=== PATIENT | female | born 1965 | race Caucasian/White ===

== ENCOUNTER 2021-12-30 22:36 | Emergency (ER) | payer OTHER, SELFPAY ==
[2021-12-30 23:09] VITALS: BP 117/78; PULSE 69; RESP 17; TEMP 36.6; O2SAT 99; BMI 25.2
--- NOTE | 2021-12-30 23:19 | DI.RAD.S_ITS ---
PROCEDURE: XR FEMUR RT MIN 2V INDICATIONS: puncture wound to left lateral thigh r/o foreign body TECHNIQUE: 2 views of the femur were acquired. COMPARISON: None. FINDINGS: Bones: No fractures or dislocations. No suspicious bony lesions. Soft tissues: No suspicious soft tissue calcifications or masses. No foreign body. IMPRESSION: No radiopaque foreign body identified. Dictated by: Kike Novoa M.D. on 12/31/2021 at 0:40 Approved by: Kike Novoa M.D. on 12/31/2021 at 0:40
[2021-12-31 03:32] VITALS: BP 120/69; PULSE 76; RESP 19; TEMP 36.5; O2SAT 96
--- NOTE | 2021-12-31 03:36 | DI.RAD.S_ITS ---
PROCEDURE: XR ANKLE RT MIN 3V INDICATIONS: Pain/swelling TECHNIQUE: 3 views of the ankle were acquired. COMPARISON: None. FINDINGS: Bones: No fractures or dislocations. Ankle mortise is normally aligned. No suspicious bony lesions. Soft tissues: No tibiotalar joint effusion. Achilles tendon appears normal. Lateral soft tissue swelling. IMPRESSION: Lateral soft tissue swelling. No evidence acute bony abnormality of the right ankle. If clinical suspicion and/or symptoms persist, further assessment with repeat plain films, or advanced imaging (e.g., CT, MRI, or bone scan) may be helpful for further assessment. Comment: Final report is concordant with preliminary interpretation provided by [facility]. Dictated by: Teja Woodward M.D. on 12/31/2021 at 5:44 Approved by: Teja Woodward M.D. on 12/31/2021 at 5:50
[2021-12-31] MEDS: TET,DIPH,PERTUSS(ACELL),VAC/PF 0.5 ML SYRINGE IM (03:45)
[2021-12-31] MEDS: cephALEXin 250 MG CAPSULE 500 MG PO (03:45)
--- NOTE | 2021-12-31 03:45 | ED.WOUNDLAC ---
HPI - Wound/Laceration General Chief Complaint: Wound/Laceration Stated Complaint: Laceration left thigh Time Seen by Provider: 12/31/21 03:30 Source: patient Mode of arrival: Ambulatory History of Present Illness HPI narrative: Patient here with . At 10:00 p.m. shayne patient was near the [place] and walking. She tripped and fell on top of her bag, it had a glass bottle that broke. She cut the left lateral thigh. Also twisted her right ankle. No other complaints. A friend had removed a piece of glass that was 2 or 3 in long from left leg wound. Related Data Previous Rx's Medication Instructions Recorded cephalexin 500 mg capsule 500 mg PO TID #15 caps 12/31/21 Allergies Allergy/AdvReac Type Severity Reaction Status Date / Time No Known Drug Allergies Allergy Verified 12/30/21 23:15 Review of Systems Review of Systems Narrative: GENERAL: Denies chills, fatigue, malaise, fever, sweats. HEENT: Denies sinus pain, ear pain, sore throat RESPIRATORY: Denies dyspnea, cough CARDIOVASCULAR: Denies chest pain, palpitations GASTROINTESTINAL: Denies nausea, vomiting, abdominal pain : Denies dysuria, frequency, hematuria MUSCULOSKELETAL: Positive for muscle or bony pain SKIN: Denies rash, skin lesions, positive for skin injury NEUROLOGIC: Denies weakness, numbness ROS Unobtainable: All systems reviewed & are unremarkable except as noted in HPI and below Patient History Social History Smoking Status: Never smoker Smoking Status: Never smoker alcohol intake frequency: 0-2 drinks per day Substance Use Type: does not use Exam Narrative Exam Narrative: GENERAL: in no distress, not toxic not dyspneic, patient in skirt. Shoes and socks off. HEAD: Normocephalic. EYES: Pupils equal round No scleral icterus. EXTREMITIES: No gross deformities. Examination right lower extremity. Patient shoes and socks off. There is edema ecchymosis of the right lateral malleolus. Able to flex and extend fully. Foot warm soft and pink strong pedal pulse with light touch intact to foot and toes. Examination of left lower extremity. There is a 2 cm semicircular laceration at the mid lateral left thigh. Base visualized bloodless field. Probed with a Q-tip. No foreign body palpated or visualized. NEURO: AOx4. SKIN: Warm and dry PSYCH: Not anxious, is cooperative Initial Vital Signs Initial Vital Signs: Vital Signs Temperature 97.9 F 12/30/21 23:09 Pulse Rate 69 12/30/21 23:09 Respiratory Rate 17 12/30/21 23:09 Blood Pressure 117/78 12/30/21 23:09 Pulse Oximetry 99 12/30/21 23:09 Oxygen Delivery Method 12/30/21 23:09 Procedures Laceration Repair Laceration 1: Time of procedure: 05:40 Site: lower extremity Side (If applicable): left Size (cm): 2 Depth: simple, single layer Local Anesthetic: lidocaine 1% and with epi Amount of anesthesia used (mL): 4 Pre-repair: wound explored, irrigated extensively and deep structures intact Skin layer closed with: other (Prolene) Skin layer suture size: 4-0 Number of sutures: 4 Technique: simple, interrupted Course Course Course Narrative: No new issues during course of stay Orders Ordered: ED Orders 12/30/21 23:19 XR femur RT min 2V Stat 12/31/21 03:36 XR ankle RT min 3V Stat 12/31/21 04:18 US extremity nonvasc lower lt Stat Discontinued Medications Bacitracin (Bacitracin Oint 0.9 Gm Pckt) 1 applic TOP NOW ONE Stop: 12/31/21 05:33 Last Admin: 12/31/21 05:39 Dose: 1 applic Documented By: LALITA Cephalexin HCl (Cephalexin 250 Mg Capsule) 500 mg PO NOW ONE Stop: 12/31/21 03:37 Last Admin: 12/31/21 03:45 Dose: 500 mg Documented By: COOPER Diphtheria/Tetanus/Acell Pertussis (Tet,Diph,Pertuss(Acell),Vac/Pf 0.5 Ml Syringe) 0.5 ml IM .ONCE ONE Stop: 12/31/21 03:37 Last Admin: 12/31/21 03:45 Dose: 0.5 ml Documented By: COOPER Lidocaine/Epinephrine (Lidocaine 1% W/Epi) 1 ml SUBCUT NOW ONE Stop: 12/31/21 03:41 Last Admin: 12/31/21 03:49 Dose: 1 ml Documented By: COOPER Vital Signs Vital signs: Vital Signs - 8 hr 12/30/21 23:09 12/31/21 03:32 12/31/21 05:46 Temperature 97.9 F 97.7 F Pulse Rate 69 76 59 L Respiratory Rate 17 19 Blood Pressure 117/78 120/69 130/75 Pulse Oximetry 99 96 99 Oxygen Delivery Method Room Air Room Air Room Air MDM - Wound/Laceration Differential Diagnosis Differential diagnosis: Likely laceration Imaging Data Extremity x-ray #1: Radiologist's Impression: [address] [address] XRay Report Signed Patient: Deloris Khan MR#: [id number] : 1965 Acct:[id number] Age/Sex: 56 / F Date of Service: 12/30/21 Loc: ED Accession Number: [id number] ?? Procedure: XR femur RT min 2V Ordering Provider: Hever Weeks MD PROCEDURE:? XR FEMUR RT MIN 2V ? INDICATIONS:? puncture wound to left lateral thigh r/o foreign body ? TECHNIQUE:? 2 views of the femur were acquired.? ? COMPARISON:? None. ? FINDINGS:? ? Bones:? No fractures or dislocations.? No suspicious bony lesions.? ? Soft tissues:? No suspicious soft tissue calcifications or masses.? No foreign body. ? IMPRESSION:? No radiopaque foreign body identified. ? ? Dictated by: Kike Novoa M.D. on 12/31/2021 at 0:40 ? ? Approved by: Kike Novoa M.D. on 12/31/2021 at 0:40 ? Extremity x-ray #2: Radiologist's Impression: X-ray right ankle impression soft tissue swelling overlying the lateral malleolus. No radiopaque foreign body. No fracture or dislocation. Ankle mortise appears intact Extremity x-ray #3: Radiologist's Impression: Ultrasound lower extremity no foreign body MDM Narrative Medical decision making narrative: Appropriate for discharge home. Exam reassuring. No foreign body seen on imaging as well as on exam. Patient tolerated procedure well her she does not want splint or crutches for her right ankle. Return precautions reviewed with patient and . Wound care instructions given as well. Discharge Plan Departure Patient Disposition: Home Clinical Impression: Laceration of left thigh, Mild sprain of right ankle Instructions: DI for Laceration Repair, DI for Ankle Sprain Activity Restrictions/Additional Instructions: Change leg dressing daily with warm soap and water and apply thin layer of topical antibiotic. See your family doctor in 10 days to have for stitches removed. Please complete prescribed antibiotics. Use Lazaro wrap for your ankle for support and to alleviate pain. May use ibuprofen for ankle pain. May use cool packs 20 minutes at a time to the ankle and elevate for pain relief and reduce swelling. Return if worse if any questions or concerns Prescriptions: New cephalexin 500 mg capsule 500 mg PO TID Qty: 15 0RF Visit Report Forms: Patient Portal/API
[2021-12-31] MEDS: LIDOCAINE 1% W/EPI 1 ML SUBCUT (03:49)
--- NOTE | 2021-12-31 04:18 | DI.US.S_ITS ---
PROCEDURE: US EXTREMITY NONVASC LOWER LT INDICATIONS: POSSIBLE FOREIGN BODY TECHNIQUE: Real-time scanning was performed of the soft tissues in the region of the left hip , with image documentation. COMPARISON: None. FINDINGS: Ultrasound was performed in the region of left hip laceration. No sonographic evidence of foreign body or fluid collection. IMPRESSION: No evidence of left hip foreign body or fluid collection. Comment: Final report is concordant with preliminary interpretation provided by [facility]. Dictated by: Teja Woodward M.D. on 12/31/2021 at 5:50 Approved by: Teja Woodward M.D. on 12/31/2021 at 5:53
[2021-12-31] MEDS: BACITRACIN OINT 0.9 GM PCKT 1 APPLIC TOP (05:39)
[2021-12-31 05:46] VITALS: BP 130/75; PULSE 59; O2SAT 99
== END 2021-12-31 05:46 | disposition home or self-care (01) ==
PROVIDERS: Emergency Provider Emergency Medicine
DX: S71.112A Laceration without foreign body, left thigh, initial encounter (principal); S93.401A Sprain of unspecified ligament of right ankle, initial encounter; W25.XXXA Contact with sharp glass, initial encounter; Z23 Encounter for immunization
CPT/HCPCS: 12001; 73552; 73610; 76882; 90471; 99284; 90715